=== PATIENT | male | born 1985 | race Caucasian/White ===

== ENCOUNTER 2017-05-10 00:44 | Emergency (ER) | payer MEDICAID ==
[2017-05-10 02:25] LABS: BASOPHILS 0.4 % (0-2); EOSINOPHILS 3.8 % (0-7); HEMATOCRIT 38.4 % (42.0-54.0); HEMOGLOBIN 12.8 g/dL (13.5-17.5); IMMATURE GRANULOCYTES 0.3 % (0-5); LYMPHOCYTES 31.1 % (15-50); MCHC 33.3 g/dL (31.0-37.0); MCV 90.1 fL (80.0-100.0); MEAN PLATELET VOLUME 9.7 fL (7.4-10.4); MONOCYTES 7.9 % (2-11); NEUTROPHILS 56.5 % (40-80); PLATELET COUNT 250 10x3/uL (130-400); RBC 4.26 10x6/uL (4.20-6.10); RDW 13.5 % (11.5-14.5); WBC 9.3 10x3/uL (4.8-10.8)
[2017-05-10 02:38] LABS: ALBUMIN 3.4 g/dL (3.4-5.0); ALKALINE PHOSPHATASE 62 U/L (46-116); ALT (SGPT) 46 U/L (10-68); BILIRUBIN - TOTAL 0.35 mg/dL (0.2-1.3); CALC OSMOLALITY 276 mosm/kg (275-300); CALCIUM 8.4 mg/dL (8.5-10.1); CARBON DIOXIDE 28.1 mmol/L (21.0-32.0); CHLORIDE - SERUM 105 mmol/L (98-107); CREATININE - SERUM 0.6 mg/dL (0.6-1.3); GLUCOSE 101 mg/dL (74-106); POTASSIUM - SERUM 3.5 mmol/L (3.5-5.1); PROTEIN - SERUM 6.6 g/dL (6.4-8.2); SODIUM 138 mmol/L (136-145); UREA NITROGEN 14 mg/dL (7-18); eGFR NON AFRICAN AMERICAN > 90 mL/min (90-120)
[2017-05-10 02:47] LABS: APPEARANCE CLEAR (CLEAR); COLOR YELLOW (YELLOW); SPECIFIC GRAVITY 1.005 (1.005-1.020)
[2017-05-10 02:48] LABS: BILIRUBIN NEGATIVE (NEGATIVE); GLUCOSE NEGATIVE (NEGATIVE); KETONE NEGATIVE (NEGATIVE); NITRITE NEGATIVE (NEGATIVE); PROTEIN NEGATIVE (NEGATIVE); UROBILINOGEN NORMAL (NORMAL)
[2017-05-10 03:03] LABS: UDS - AMPHET POSITIVE QUAL (NEGATIVE); UDS - BARB NEGATIVE QUAL (NEGATIVE); UDS - BENZO NEGATIVE QUAL (NEGATIVE); UDS - COCAINE NEGATIVE QUAL (NEGATIVE); UDS - OPIATE NEGATIVE QUAL (NEGATIVE); UDS - PCP NEGATIVE QUAL (NEGATIVE); UDS - THC NEGATIVE QUAL (NEGATIVE)
== END 2017-05-10 08:18 | disposition home or self-care (01) ==
LOC: D.ER 00:44
PROVIDERS: Emergency Medicine
DX: T42.4X2A Poisoning by benzodiazepines, intentional self-harm, initial encounter (principal); Y92.029 Unspecified place in mobile home as the place of occurrence of the external cause; F19.10 Other psychoactive substance abuse, uncomplicated

== ENCOUNTER 2017-05-13 14:35 | Emergency (ER) | payer MEDICAID ==
[2017-05-13 15:09] LABS: BASOPHILS 0.2 % (0-2); EOSINOPHILS 0.2 % (0-7); HEMATOCRIT 32.7 % (42.0-54.0); IMMATURE GRANULOCYTES 0.3 % (0-5); LYMPHOCYTES 14.1 % (15-50); MCH 29.7 pg (26.0-34.0); MCHC 33.6 g/dL (31.0-37.0); MCV 88.4 fL (80.0-100.0); MEAN PLATELET VOLUME 9.6 fL (7.4-10.4); MONOCYTES 11.3 % (2-11); NEUTROPHILS 73.9 % (40-80); PLATELET COUNT 267 10x3/uL (130-400); RDW 13.5 % (11.5-14.5); WBC 13.3 10x3/uL (4.8-10.8)
[2017-05-13 15:30] LABS: ACETAMINOPHEN 2.4 ug/mL (10.0-30.0); ALBUMIN 3.2 g/dL (3.4-5.0); ALKALINE PHOSPHATASE 60 U/L (46-116); ALT (SGPT) 65 U/L (10-68); BILIRUBIN - TOTAL 0.86 mg/dL (0.2-1.3); CALC OSMOLALITY 276 mosm/kg (275-300); CALCIUM 7.6 mg/dL (8.5-10.1); CARBON DIOXIDE 19.1 mmol/L (21.0-32.0); CHLORIDE - SERUM 103 mmol/L (98-107); CREATININE - SERUM 0.9 mg/dL (0.6-1.3); GLUCOSE 100 mg/dL (74-106); POTASSIUM - SERUM 3.4 mmol/L (3.5-5.1); SODIUM 135 mmol/L (136-145); UREA NITROGEN 31 mg/dL (7-18); eGFR NON AFRICAN AMERICAN > 90 mL/min (90-120)
[2017-05-13 15:35] LABS: LITHIUM 0.07 mmol/L (0.60-1.20)
[2017-05-13 16:43] LABS: APPEARANCE CLEAR (CLEAR); BILIRUBIN NEGATIVE (NEGATIVE); COLOR YELLOW (YELLOW); GLUCOSE NEGATIVE (NEGATIVE); KETONE MODERATE mg/dL (NEGATIVE); NITRITE NEGATIVE (NEGATIVE); PROTEIN NEGATIVE (NEGATIVE); UROBILINOGEN NORMAL (NORMAL)
[2017-05-13 16:52] LABS: UDS - AMPHET POSITIVE QUAL (NEGATIVE); UDS - BARB NEGATIVE QUAL (NEGATIVE); UDS - BENZO NEGATIVE QUAL (NEGATIVE); UDS - COCAINE NEGATIVE QUAL (NEGATIVE); UDS - OPIATE NEGATIVE QUAL (NEGATIVE); UDS - PCP NEGATIVE QUAL (NEGATIVE); UDS - THC NEGATIVE QUAL (NEGATIVE)
== END 2017-05-14 10:15 | disposition home or self-care (01) ==
LOC: D.ER 14:35
PROVIDERS: Emergency Medicine
DX: F15.10 Other stimulant abuse, uncomplicated (principal); F17.200 Nicotine dependence, unspecified, uncomplicated

== ENCOUNTER 2017-05-21 10:03 | Emergency (ER) | payer MEDICAID | END 2017-05-21 12:38 | disposition home or self-care (01) | LOC: D.ER 10:03 | DX: L02.415 Cutaneous abscess of right lower limb (principal); F17.200 Nicotine dependence, unspecified, uncomplicated ==

== ENCOUNTER 2017-09-25 19:32 | Emergency (ER) | payer MEDICAID ==
[2017-11-22 13:21] VITALS: BMI 19.5
== END 2017-09-25 21:49 | disposition home or self-care (01) ==
LOC: D.ER 19:32
DX: L02.415 Cutaneous abscess of right lower limb (principal)

== ENCOUNTER 2017-11-10 15:02 | Emergency (ER) | payer MEDICAID | END 2017-11-10 21:43 | disposition home or self-care (01) | LOC: D.ER 15:02 | DX: L02.31 Cutaneous abscess of buttock (principal); F17.200 Nicotine dependence, unspecified, uncomplicated ==

== ENCOUNTER 2017-11-20 19:49 | Emergency (ER) | payer MEDICAID ==
[~2017-11-20] VITALS: Ht 180.3 cm; Wt 68.2 kg
[2017-11-20 20:03] VITALS: Ht 180.3 cm; Wt 68.2 kg
[2017-11-20] MEDS ORDERED: CLEOCIN HCL300 MG PO (20:59)
[2017-11-20] MEDS ORDERED: NORCO 7.5/325 T1 TA1 PO (20:59)
[2017-11-20 22:33] VITALS: BP 123/91
[2017-11-21] MEDS ORDERED: KEFLEX500 MG PO (10:29)
[2017-11-21] MEDS ORDERED: ZOFRAN8 MG PO (10:29)
[2017-11-21] MEDS ORDERED: FLORASTOR250 MG PO (10:29)
[2017-11-21] MEDS ORDERED: LITHIUM CARBON300 MG PO (16:04)
[2017-11-21] MEDS ORDERED: SEROQUEL200 MG PO (16:05)
[2017-11-21] MEDS ORDERED: CELEXA20 MG PO (16:05)
[2017-11-29 06:16] VITALS: Ht 180.3 cm; Wt 68.2 kg
== END 2017-11-20 22:35 | disposition home or self-care (01) ==
LOC: D.ER 19:49
DX: L73.2 Hidradenitis suppurativa (principal); F17.200 Nicotine dependence, unspecified, uncomplicated

== ENCOUNTER 2017-11-21 08:56 | Observation (INO) | payer MEDICAID ==
[~2017-11-21] VITALS: Ht 180.3 cm; Wt 63.5 kg
[~2017-11-21 08:56] MED LIST: CLEOCIN HCL300 MG PO; NORCO 7.5/325 T1 TA1 PO
[2017-11-21 10:02] LABS: BASOPHILS 0.1 % (0-2); EOSINOPHILS 0.9 % (0-7); HEMATOCRIT 47.7 % (42.0-54.0); HEMOGLOBIN 15.8 g/dL (13.5-17.5); IMMATURE GRANULOCYTES 0.2 % (0-5); LYMPHOCYTES 5.6 % (15-50); MCH 30.2 pg (26.0-34.0); MCHC 33.1 g/dL (31.0-37.0); MONOCYTES 4.4 % (2-11); NEUTROPHILS 88.8 % (40-80); PLATELET COUNT 312 10x3/uL (130-400); RBC 5.24 10x6/uL (4.20-6.10); WBC 17.4 10x3/uL (4.8-10.8)
[2017-11-21 10:08] LABS: ALBUMIN 3.6 g/dL (3.4-5.0); ALKALINE PHOSPHATASE 77 U/L (46-116); ALT (SGPT) 56 U/L (10-68); AMYLASE - SERUM 64 U/L (25-115); BILIRUBIN - TOTAL 0.35 mg/dL (0.2-1.3); CALC OSMOLALITY 279 mosm/kg (275-300); CARBON DIOXIDE 31.3 mmol/L (21.0-32.0); CHLORIDE - SERUM 102 mmol/L (98-107); CREATININE - SERUM 0.9 mg/dL (0.6-1.3); GLUCOSE 91 mg/dL (74-106); LIPASE 85 U/L (73-393); POTASSIUM - SERUM 4.3 mmol/L (3.5-5.1); PROTEIN - SERUM 7.7 g/dL (6.4-8.2); SODIUM 138 mmol/L (136-145); UREA NITROGEN 25 mg/dL (7-18); eGFR NON AFRICAN AMERICAN > 90 mL/min (90-120)
[2017-11-21] MEDS ORDERED: KEFLEX500 MG PO (10:29)
[2017-11-21] MEDS ORDERED: ZOFRAN8 MG PO (10:29)
[2017-11-21] MEDS ORDERED: FLORASTOR250 MG PO (10:29)
[2017-11-21 10:33] LABS: APPEARANCE CLEAR (CLEAR); BILIRUBIN NEGATIVE (NEGATIVE); COLOR YELLOW (YELLOW); GLUCOSE NEGATIVE (NEGATIVE); KETONE NEGATIVE (NEGATIVE); NITRITE NEGATIVE (NEGATIVE); PROTEIN NEGATIVE (NEGATIVE); SPECIFIC GRAVITY 1.015 (1.005-1.020); UROBILINOGEN NORMAL (NORMAL)
[2017-11-21] MEDS ORDERED: LITHIUM CARBON300 MG PO (16:04)
[2017-11-21] MEDS ORDERED: SEROQUEL200 MG PO (16:05)
[2017-11-21] MEDS ORDERED: CELEXA20 MG PO (16:05)
[2017-11-21 16:06] VITALS: BP 125/72; BMI 19.5
[2017-11-21 20:00] VITALS: BP 119/74
[2017-11-22] VITALS: BP 121/60
[2017-11-22 04:00] VITALS: BP 122/60
[2017-11-22 06:06] LABS: BASOPHILS 0.1 % (0-2); EOSINOPHILS 3.4 % (0-7); HEMATOCRIT 40.9 % (42.0-54.0); HEMOGLOBIN 13.2 g/dL (13.5-17.5); IMMATURE GRANULOCYTES 0.3 % (0-5); LYMPHOCYTES 21.7 % (15-50); MCH 29.5 pg (26.0-34.0); MCHC 32.3 g/dL (31.0-37.0); MCV 91.3 fL (80.0-100.0); MONOCYTES 8.6 % (2-11); NEUTROPHILS 65.9 % (40-80); RBC 4.48 10x6/uL (4.20-6.10); RDW 14.2 % (11.5-14.5)
[2017-11-22 06:16] LABS: PLATELET COUNT 245 10x3/uL (130-400); WBC 6.7 10x3/uL (4.8-10.8)
[2017-11-22 06:29] LABS: ALKALINE PHOSPHATASE 54 U/L (46-116); BILIRUBIN - TOTAL 0.28 mg/dL (0.2-1.3); CALCIUM 8.2 mg/dL (8.5-10.1); CHLORIDE - SERUM 108 mmol/L (98-107); CREATININE - SERUM 0.9 mg/dL (0.6-1.3); GLUCOSE 109 mg/dL (74-106); POTASSIUM - SERUM 4.1 mmol/L (3.5-5.1); SODIUM 141 mmol/L (136-145); eGFR NON AFRICAN AMERICAN > 90 mL/min (90-120)
[2017-11-22 06:30] LABS: ALBUMIN 2.6 g/dL (3.4-5.0); ALT (SGPT) 38 U/L (10-68); CALC OSMOLALITY 280 mosm/kg (275-300); PROTEIN - SERUM 5.3 g/dL (6.4-8.2); UREA NITROGEN 11 mg/dL (7-18)
[2017-11-22 09:25] VITALS: BMI 19.5
[2017-11-22 10:15] VITALS: BP 119/65
[2017-11-22 12:17] VITALS: BP 117/69
[2017-11-22 13:21] VITALS: Ht 180.3 cm; Wt 63.5 kg
[2017-11-22] MEDS ORDERED: DOXYCYCLINE HY100 M2 PO (13:21)
== END 2017-11-22 16:28 | disposition home or self-care (01) ==
LOC: D.ER 08:56 → D.EDHOLD 11:09 → D.MS 11:17 → OBSVTIME 18:01 → D.MS 11-22 16:28
PROVIDERS: Family Medicine
DX: L73.2 Hidradenitis suppurativa (principal); F31.9 Bipolar disorder, unspecified; L02.31 Cutaneous abscess of buttock; Z59.0 Homelessness; F17.210 Nicotine dependence, cigarettes, uncomplicated

== ENCOUNTER 2017-11-28 16:29 | Observation (INO) | payer MEDICAID ==
[~2017-11-28] VITALS: Ht 180.3 cm; Wt 68.2 kg
[~2017-11-28 16:29] MED LIST changes: +CELEXA20 MG PO; +DOXYCYCLINE HY100 M2 PO; +FLORASTOR250 MG PO; +KEFLEX500 MG PO; +LITHIUM CARBON300 MG PO; +SEROQUEL200 MG PO; +ZOFRAN8 MG PO
[2017-11-28 17:28] LABS: BASOPHILS 0.4 % (0-2); EOSINOPHILS 2.6 % (0-7); HEMATOCRIT 41.1 % (42.0-54.0); HEMOGLOBIN 13.9 g/dL (13.5-17.5); IMMATURE GRANULOCYTES 0.2 % (0-5); LYMPHOCYTES 21.8 % (15-50); MCHC 33.8 g/dL (31.0-37.0); MCV 88.8 fL (80.0-100.0); MEAN PLATELET VOLUME 9.8 fL (7.4-10.4); MONOCYTES 9.8 % (2-11); NEUTROPHILS 65.2 % (40-80); PLATELET COUNT 307 10x3/uL (130-400); RBC 4.63 10x6/uL (4.20-6.10); RDW 14.1 % (11.5-14.5); WBC 8.2 10x3/uL (4.8-10.8)
[2017-11-28 17:44] LABS: ALBUMIN 3.2 g/dL (3.4-5.0); ALKALINE PHOSPHATASE 68 U/L (46-116); ALT (SGPT) 31 U/L (10-68); BILIRUBIN - TOTAL 0.57 mg/dL (0.2-1.3); CALC OSMOLALITY 282 mosm/kg (275-300); CALCIUM 8.7 mg/dL (8.5-10.1); CARBON DIOXIDE 25.6 mmol/L (21.0-32.0); CHLORIDE - SERUM 104 mmol/L (98-107); CREATININE - SERUM 0.9 mg/dL (0.6-1.3); GLUCOSE 143 mg/dL (74-106); PROTEIN - SERUM 6.6 g/dL (6.4-8.2); SODIUM 139 mmol/L (136-145); UREA NITROGEN 22 mg/dL (7-18); eGFR NON AFRICAN AMERICAN > 90 mL/min (90-120)
[2017-11-28 17:46] LABS: POTASSIUM - SERUM 3.5 mmol/L (3.5-5.1)
[2017-11-28 18:43] LABS: UDS - AMPHET POSITIVE QUAL (NEGATIVE); UDS - BARB NEGATIVE QUAL (NEGATIVE); UDS - BENZO NEGATIVE QUAL (NEGATIVE); UDS - COCAINE NEGATIVE QUAL (NEGATIVE); UDS - OPIATE NEGATIVE QUAL (NEGATIVE); UDS - PCP NEGATIVE QUAL (NEGATIVE); UDS - THC NEGATIVE QUAL (NEGATIVE)
[2017-11-28 19:30] VITALS: BP 94/55
[2017-11-28 20:30] VITALS: BP 94/52
[2017-11-28 21:30] VITALS: BP 111/57
[2017-11-28 22:30] VITALS: BP 105/48
[2017-11-29] VITALS (7 sets, daily range): BP systolic 102–138; BP diastolic 55–71; Ht 180.3 cm; Wt 68.2 kg
== END 2017-11-29 18:20 | disposition home or self-care (01) ==
LOC: D.ER 16:29 → D.EDHOLD 11-29 02:20 → OBSVTIME 11-29 02:20 → D.M2 11-29 02:54
PROVIDERS: Family Medicine
DX: T43.591A Poisoning by other antipsychotics and neuroleptics, accidental (unintentional), initial encounter (principal); F32.9 Major depressive disorder, single episode, unspecified; Z72.0 Tobacco use; F15.10 Other stimulant abuse, uncomplicated

== ENCOUNTER 2018-06-12 03:32 | Emergency (ER) | payer MEDICAID ==
[~2018-06-12] VITALS: Ht 180.3 cm; Wt 71.4 kg
[2018-06-12 03:38] VITALS: Ht 180.3 cm; Wt 71.4 kg
[2018-06-12 04:34] LABS: BASOPHILS 0.5 % (0-2); EOSINOPHILS 0.9 % (0-7); HEMATOCRIT 40.9 % (42.0-54.0); IMMATURE GRANULOCYTES 0.3 % (0-5); LYMPHOCYTES 13.4 % (15-50); MCH 30.2 pg (26.0-34.0); MCHC 34.2 g/dL (31.0-37.0); MCV 88.3 fL (80.0-100.0); MONOCYTES 10.9 % (2-11); PLATELET COUNT 291 10x3/uL (130-400); RBC 4.63 10x6/uL (4.20-6.10); RDW 12.6 % (11.5-14.5); WBC 10.3 10x3/uL (4.8-10.8)
[2018-06-12 04:48] LABS: UDS - AMPHET POSITIVE QUAL (NEGATIVE); UDS - BARB NEGATIVE QUAL (NEGATIVE); UDS - BENZO NEGATIVE QUAL (NEGATIVE); UDS - COCAINE NEGATIVE QUAL (NEGATIVE); UDS - OPIATE NEGATIVE QUAL (NEGATIVE); UDS - PCP NEGATIVE QUAL (NEGATIVE); UDS - THC NEGATIVE QUAL (NEGATIVE)
[2018-06-12 04:52] LABS: ALBUMIN 3.7 g/dL (3.4-5.0); ALKALINE PHOSPHATASE 61 U/L (46-116); ALT (SGPT) 46 U/L (10-68); BILIRUBIN - TOTAL 0.59 mg/dL (0.2-1.3); CALC OSMOLALITY 279 mosm/kg (275-300); CALCIUM 8.8 mg/dL (8.5-10.1); CARBON DIOXIDE 26.4 mmol/L (21.0-32.0); CHLORIDE - SERUM 102 mmol/L (98-107); CREATININE - SERUM 0.9 mg/dL (0.6-1.3); GLUCOSE 113 mg/dL (74-106); POTASSIUM - SERUM 4.2 mmol/L (3.5-5.1); SODIUM 136 mmol/L (136-145); UREA NITROGEN 33 mg/dL (7-18); eGFR NON AFRICAN AMERICAN > 90 mL/min (90-120)
[2018-06-12 16:11] VITALS: BP 121/73
== END 2018-06-12 16:12 | disposition home or self-care (01) ==
LOC: D.ER 03:32
PROVIDERS: Emergency Medicine
DX: F15.10 Other stimulant abuse, uncomplicated (principal); R79.89 Other specified abnormal findings of blood chemistry; R00.0 Tachycardia, unspecified

== ENCOUNTER 2020-10-11 17:43 | Inpatient (IN) | payer OTHER ==
[~2020-10-11] VITALS: Ht 180.3 cm; Wt 68.0 kg
--- NOTE | 2020-10-11 18:10 | NUR ---
URINE COLLECTED AND SENT TO LAB WITH COMPOSITION MOLDER.
[2020-10-11 18:14] LABS: BASOPHILS 2.4 % (0-2); EOSINOPHILS 1.5 % (0-7); HEMATOCRIT 42.7 % (42.0-54.0); HEMOGLOBIN 14.3 g/dL (13.5-17.5); IMMATURE GRANULOCYTES 0.3 % (0-5); MCH 29.3 pg (26.0-34.0); MCHC 33.5 g/dL (31.0-37.0); MCV 87.5 fL (80.0-100.0); MEAN PLATELET VOLUME 11.2 fL (7.4-10.4); MONOCYTES 13.2 % (2-11); NEUTROPHILS 46.6 % (40-80); PLATELET COUNT 261 10x3/uL (130-400); RBC 4.88 10x6/uL (4.20-6.10); RDW 16.2 % (11.5-14.5); WBC 7.5 10x3/uL (4.8-10.8)
--- NOTE | 2020-10-11 18:24 | NUR ---
LACERATION TO LEFT FA CLEANSED WITH WOUND CLEANSER AND BETADINE AT THIS TIME.
[2020-10-11 18:25] LABS: CALC OSMOLALITY 279 mosm/kg (275-300); CALCIUM 8.2 mg/dL (8.5-10.1); CARBON DIOXIDE 28.2 mmol/L (21.0-32.0); CHLORIDE - SERUM 107 mmol/L (98-107); CREATININE - SERUM 0.7 mg/dL (0.6-1.3); GLUCOSE 80 mg/dL (74-106); POTASSIUM - SERUM 3.6 mmol/L (3.5-5.1); SODIUM 141 mmol/L (136-145); UREA NITROGEN 13 mg/dL (7-18); eGFR NON AFRICAN AMERICAN > 90 mL/min (90-120)
[2020-10-11 18:29] LABS: UDS - AMPHET POSITIVE QUAL (NEGATIVE); UDS - BARB NEGATIVE QUAL (NEGATIVE); UDS - BENZO NEGATIVE QUAL (NEGATIVE); UDS - COCAINE NEGATIVE QUAL (NEGATIVE); UDS - OPIATE NEGATIVE QUAL (NEGATIVE); UDS - PCP NEGATIVE QUAL (NEGATIVE); UDS - THC NEGATIVE QUAL (NEGATIVE)
[2020-10-11 18:33] LABS: BILIRUBIN 2+ (NEGATIVE); KETONE NEGATIVE (NEGATIVE); NITRITE NEGATIVE (NEGATIVE); UROBILINOGEN NORMAL mg/dL (< 2)
[2020-10-11 18:37] LABS: ALBUMIN 3.1 g/dL (3.4-5.0); ALKALINE PHOSPHATASE 196 U/L (30-120); BILIRUBIN - TOTAL 8.97 mg/dL (0.2-1.3); MAGNESIUM - SERUM 2.1 mg/dL (1.8-2.4); PROTEIN - SERUM 6.6 g/dL (6.4-8.2)
[2020-10-11 18:46] LABS: ALT (SGPT) 1908 U/L (10-68)
--- NOTE | 2020-10-11 19:00 | NUR ---
PT SITTING UP IN BED CALM AND COOPERATIVE AT THIS TIME. PT STATES THAT HE HAS BEEN DEPRESSED AND KNOWS HE NEEDS HELP. PT C/O SI. PT INFORMED THAT ASSEMBLER PIANO WILL COME TO ASSESS HIM. AT BEDSIDE.
--- NOTE | 2020-10-11 20:00 | NUR ---
DR. CORRAL NOTIFIED AND SITTER ORDERED. SITTER AT BEDSIDE. NOTIFIED CHARGE NURSE AND ATTENDING IN REGARDS TO ASSESSMENT FINDINGS. RESOURCES GIVEN TO PT AND SAFETY PLAN INITIATED.
--- NOTE | 2020-10-11 22:00 | NUR ---
PT GIVEN SANDWICH BOX WITH JELLO AND WATER TO DRINK.SITTER AT BEDSIDE.
--- NOTE | 2020-10-11 23:24 | NUR ---
PT WOUND CLEANED TO L FOREARM WITH WOUND POT ROOM TAPPER. BACITRACIN APPLIED AND DRESSING APPLIED. PT SITTING UP IN BED EATING SANDWICH
--- NOTE | 2020-10-12 01:10 | NUR ---
PT RESTING EYES CLOSED RESP EVEN AND UNLABORED SITTER AT BEDSIDE.
[2020-10-12 03:39] VITALS: BP 105/56
[2020-10-12 06:00] VITALS: BP 102/48
[2020-10-12 16:00] LABS: APTT 30.3 SECONDS (22.8-39.4); INR 1.31 (0.85-1.17); PROTIME 15.1 SECONDS (11.6-15.0)
[2020-10-12 16:16] LABS: BILIRUBIN - TOTAL 7.15 mg/dL (0.2-1.3)
--- NOTE | 2020-10-12 19:30 | NUR ---
UPDATED PT ON PLAN OF CARE, REMINDED HIM OF BEING NPO AT MIDNIGHT. SCD NOT PLACED D/T LIGATURE RISK AND PT REQUENTLY MOVING AROUND BED AND AMBULATING TO AND FROM RESTROOM. PT GIVEN ICE WATER, SANDWICH AT THIS TIME. PT AAO X4, VOICES NEEDS. RESPIRATIONS APPEAR EVEN AND NON LABORED. NO SIGNS ACUTE DISTRESS AT THIS TIME. PT SKIN IS JAUNDICE. THERE IS A DRESSING ON LEFT FOREARM WHERE PT PREVIOUSLY CUT SELF IN AN ATTEMPT TO COMMIT SUICIDE.
--- NOTE | 2020-10-12 21:51 | NUR ---
WOUND ON L FOREARM CLEANED WITH WOUND CLEANSER. BACITRACIN APPLIED AND DRESSING APPLIED. PT THEN AMBULATED TO AND FROM RESTROOM WITH STEADY GAIT.
--- NOTE | 2020-10-12 23:20 | NUR ---
PT GIVEN ICE WATER, PEANUT BUTTER AND CRACKERS. DENIES FURTHER NEEDS. SITTER REMAINS WITHIN LINE OF SIGHT.
[2020-10-13] VITALS: BP 108/58
--- NOTE | 2020-10-13 01:36 | NUR ---
PT REMAINS IN BED, FREQUENTLY MOVES EXTREMETIES. SITTER WITHIN LINE OF SIGHT.
--- NOTE | 2020-10-13 03:55 | NUR ---
PT RESTING ON RIGHT SIDE. NAD NOTED. SITTER WITHIN LINE OF SIGHT.
[2020-10-13 04:00] VITALS: BP 110/65
--- NOTE | 2020-10-13 06:23 | NUR ---
I.S. AT BEDSIDE. PT EDUCATED ON USE. DEMONSTRATES TO NURSE HOW TO USE.
--- NOTE | 2020-10-13 06:25 | NUR ---
PT WEIGHS 144.6 PER SCALE. ABLE TO AMBULATE AROUND ROOM INDEPENDENTLY WITH STEADY GAIT. DENIES CURRENT NEEDS. HAS NOTIFIED NURSE THAT HE HAS HAD BM'S THROUGHOUT NIGHT THAT WERE YELLOW AND WHITE IN NATURE, HAS HAD LOOSE STOOLS.
[2020-10-13 07:21] LABS: HEMATOCRIT 39.7 % (42.0-54.0); HEMOGLOBIN 13.4 g/dL (13.5-17.5); LYMPHOCYTE ABS# 1.89 10x3/uL (1.32-3.57); MCH 29.3 pg (26.0-34.0); MCHC 33.8 g/dL (31.0-37.0); MCV 86.9 fL (80.0-100.0); MEAN PLATELET VOLUME 11.4 fL (7.4-10.4); NEUTROPHIL ABS# 3.01 10x3/uL (1.78-5.38); PLATELET COUNT 236 10x3/uL (130-400); RBC 4.57 10x6/uL (4.20-6.10); RDW 16.5 % (11.5-14.5)
[2020-10-13 07:35] LABS: ALBUMIN 2.5 g/dL (3.4-5.0); ALKALINE PHOSPHATASE 221 U/L (30-120); BILIRUBIN - TOTAL 7.33 mg/dL (0.2-1.3); CALC OSMOLALITY 276 mosm/kg (275-300); CALCIUM 8.1 mg/dL (8.5-10.1); CARBON DIOXIDE 29.3 mmol/L (21.0-32.0); CHLORIDE - SERUM 106 mmol/L (98-107); CREATININE - SERUM 0.7 mg/dL (0.6-1.3); GLUCOSE 96 mg/dL (74-106); POTASSIUM - SERUM 4.1 mmol/L (3.5-5.1); PROTEIN - SERUM 5.8 g/dL (6.4-8.2); SODIUM 139 mmol/L (136-145); UREA NITROGEN 10 mg/dL (7-18); eGFR NON AFRICAN AMERICAN > 90 mL/min (90-120)
[2020-10-13 07:47] LABS: ALT (SGPT) 1067 U/L (10-68)
[2020-10-13 07:52] LABS: EOSINOPHILS 1 % (0-7); LYMPHOCYTES 28 % (15-50); NEUTROPHILS 68 % (40-80); PLATELET ESTIMATE NORMAL; TARGET CELLS OCC
[2020-10-13 09:12] LABS: HEPATITIS C ANTIBODY 0.2 (0.0-0.9)
[2020-10-13 09:27] VITALS: Ht 180.3 cm; Wt 68.0 kg
--- NOTE | 2020-10-13 16:26 | MORECARE ---
CASE MANAGEMENT DISCHARGE SUMMARY PATIENT: MONICA MUÑOZ UNIT: [id number] ADM DATE: 10/11/20 AGE: 34 : 85 SEX: M ROOM/BED: D.E21 AUTHOR: SARAH,DOC PHYSICIAN: REFERRING PHYSICIAN: PANCHITO HADDAD MD DATE OF SERVICE: 10/13/20 Case Management Discharge Planning Summary COMMENTS ENTERED DATE: 10/13/20 16:18 CT COMMENT TYPE: Discharge Planning REVIEWER: Katie Blue CM received consult for Inpatient Psych placement. CM spoke with patient's nurse, Magui, about consult. Magui informed CM that patient want's to be sent to [facility]. Patient has not been deemed medically stable at this time but may be ready for discharge to Inpatient [facility] this weekend. TAYLOR called and spoke with Ye at [facility] about referral. Informed Ye that CM anticipating DC this weekend. CM faxed records as requested to [phone]. CM to call facility back )when patient is stable for DC. DCP REVIEW SUMMARY ANTICIPATED D/C DATE: EXPECTED LOS : CASE STATUS: DCP Initiated INITIAL REVIEW: 10/11/2020 INITIAL REVIEWER: Katie Blue FINAL DISCHARGE DISPOSITION: : FINAL REVIEWER: FINAL REVIEW DATE: DCP Focus Questions & Answers QUESTION: ANSWER : PATIENT: MONICA MUÑOZ ENCOUNTER: [id number] MEDICAL RECORD#: [id number] ADMISSION DATE: 10/11/2020 DISCHARGE DATE: ATTENDING MD: PANCHITO ARANA : AGE: 34 MARITAL STATUS: S DC PLAN ID: [id number] FACILITY: [facility] PRINTED ON: 10/13/20 16:26 CT All edits/amendments must be made on the electronic document DICTATION DATE: 10/13/201625 PIGMENT MAKING SUPERVISOR: MATHIEU 10/13/201625 RPT#: [id number] DC DATE: STATUS: ADM IN [facility] [address] [place] [address] END OF REPORT
[2020-10-14 06:19] LABS: BASOPHILS 0.8 % (0-2); IMMATURE GRANULOCYTES 0.5 % (0-5); LYMPHOCYTE ABS# 1.96 10x3/uL (1.32-3.57); LYMPHOCYTES 30.7 % (15-50); MCH 28.8 pg (26.0-34.0); MCHC 33.3 g/dL (31.0-37.0); MCV 86.5 fL (80.0-100.0); MEAN PLATELET VOLUME 11.6 fL (7.4-10.4); MONOCYTES 14.6 % (2-11); NEUTROPHIL ABS# 3.28 10x3/uL (1.78-5.38); NEUTROPHILS 51.4 % (40-80); PLATELET COUNT 255 10x3/uL (130-400); RBC 4.51 10x6/uL (4.20-6.10); RDW 16.6 % (11.5-14.5); WBC 6.4 10x3/uL (4.8-10.8)
[2020-10-14 06:42] LABS: ALBUMIN 2.4 g/dL (3.4-5.0); ALKALINE PHOSPHATASE 279 U/L (30-120); BILIRUBIN - TOTAL 5.57 mg/dL (0.2-1.3); CALCIUM 8.1 mg/dL (8.5-10.1); CHLORIDE - SERUM 105 mmol/L (98-107); CREATININE - SERUM 0.7 mg/dL (0.6-1.3); GLUCOSE 106 mg/dL (74-106); PROTEIN - SERUM 5.9 g/dL (6.4-8.2); SODIUM 140 mmol/L (136-145); eGFR NON AFRICAN AMERICAN > 90 mL/min (90-120)
[2020-10-14 06:43] LABS: ALT (SGPT) 797 U/L (10-68); CALC OSMOLALITY 278 mosm/kg (275-300); UREA NITROGEN 13 mg/dL (7-18)
[2020-10-14 06:44] LABS: INR 1.2 (0.85-1.17); PROTIME 14.1 SECONDS (11.6-15.0)
[2020-10-14 07:05] VITALS: BP 146/78
--- NOTE | 2020-10-14 09:10 | NUR ---
PT SWAB FOR COVID, SENT TO LAB. DR. HADDAD HERE TO SEE PT. STATES WE CAN START TRYING TO PLACE PT. IN PSYCH FACILITY.
[2020-10-14 09:17] LABS: BILIRUBIN 3+ (NEGATIVE); KETONE NEGATIVE (NEGATIVE); NITRITE NEGATIVE (NEGATIVE)
[2020-10-14 09:56] LABS: SARS-CoV-2 ANTIGEN NEGATIVE- SARS-COV-2 (NEGATIVE)
[2020-10-14 10:00] VITALS: BP 149/73
[2020-10-14 18:07] VITALS: BP 138/72
--- NOTE | 2020-10-14 19:52 | NUR ---
[facility] CALLED FOR TRANSPORT
[2020-10-14 20:00] VITALS: BP 132/85
--- NOTE | 2020-10-14 21:03 | MORECARE ---
CASE MANAGEMENT DISCHARGE SUMMARY PATIENT: MONICA MUÑOZ UNIT: [id number] ADM DATE: 10/11/20 AGE: 34 : 85 SEX: M ROOM/BED: D.E21 AUTHOR: SARAH,DOC PHYSICIAN: REFERRING PHYSICIAN: PANCHITO HADDAD MD DATE OF SERVICE: 10/14/20 Case Management Discharge Planning Summary COMMENTS ENTERED DATE: 10/13/20 16:18 CT COMMENT TYPE: Discharge Planning REVIEWER: Katie Blue CM received consult for Inpatient Psych placement. CM spoke with patient's nurse, Magui, about consult. Magui informed CM that patient want's to be sent to [facility]. Patient has not been deemed medically stable at this time but may be ready for discharge to Inpatient [facility] this weekend. TAYLOR called and spoke with Ye at [facility] about referral. Informed Ye that CM anticipating DC this weekend. CM faxed records as requested to [phone]. CM to call facility back )when patient is stable for DC. DCP REVIEW SUMMARY ANTICIPATED D/C DATE: EXPECTED LOS : CASE STATUS: DCP Initiated INITIAL REVIEW: 10/11/2020 INITIAL REVIEWER: Katie Bule FINAL DISCHARGE DISPOSITION: : FINAL REVIEWER: FINAL REVIEW DATE: DCP Focus Questions & Answers QUESTION: ANSWER : PATIENT: MONICA MUÑOZ ENCOUNTER: [id number] MEDICAL RECORD#: [id number] ADMISSION DATE: 10/11/2020 DISCHARGE DATE: 10/14/2020 ATTENDING MD: PANCHITO ARANA : AGE: 34 MARITAL STATUS: S DC PLAN ID: [id number] FACILITY: [facility] PRINTED ON: 10/14/20 21:03 CT All edits/amendments must be made on the electronic document DICTATION DATE: 10/14/202102 [place] OPERATOR: MATHIEU 10/14/202102 RPT#: [id number] DC DATE:10/14/20 STATUS: DIS IN [facility] [address] [place] [address] END OF REPORT
--- NOTE | 2020-10-16 15:16 | CN ---
PATIENT NAME:MONICA MUÑOZ MEDICAL RECORD: [id number] : 85 LOCATION:ANN.E21- ADMIT DATE: 10/11/20 ACCOUNT: [id number] CONSULTING PHYSICIAN: VANIA CORRAL MD REFERRING PHYSICIAN: PANCHITO HADDAD MD DATE OF CONSULTATION: 10/12/2020 IDENTIFYING DATA: The patient is 34 years old and he is admitted to the hospital secondary to hepatic dysfunction. CHIEF COMPLAINT: Suicidal thoughts. HISTORY OF PRESENT ILLNESS: The patient presented to the Emergency Room after having cut his wrists and was reporting suicidal thoughts. He was found to have elevated liver enzymes and he does have a known history of hepatitis C. He is endorsing numerous neurovegetative depressive symptoms and tells me he has a history of bipolar disorder with previous stabilization on lithium. He furthermore reports that he does indeed have a long history of IV drug addiction, but that he had been in a treatment program and has had about 90 days of sobriety prior to the day of admission, at which time he did use methamphetamine. He believes that his primary mental health issue is now depression and he is wanting inpatient mental health treatment. He has been to [facility] twice in the past and is willing to go back there. ASSESSMENT: 1. Bipolar disorder, depressed. 2. Methamphetamine abuse. PLAN: The patient is obviously going to be hospitalized given his current medical conditions and he should be with a sitter during this hospitalization. I am going to take a conservative approach to treating him pharmacologically today because he has such abnormal labs. I will prescribe the lithium and recommend that he stay with a sitter and that once medically stabilized, he needs to be transferred to inpatient psychiatric care. TRANSINT:[id number] Voice Confirmation ID: [id number] DOCUMENT ID: [id number] VANIA CORRAL MD at 1516 CC: [id number] DICTATION DATE: 10/12/20 1611 GRAVEDIGGER: 10/12/20 1759 DIS IN 10/14/20 [place] [id number] [place] [id number]
== END 2020-10-14 20:59 | DRG 442 ==
LOC: D.ER 17:43 → D.EDHOLD 20:07
PROVIDERS: Emergency Medicine; Family Medicine; Internal Medicine Gastroenterology; ADMIT Family Medicine; ATTEND Family Medicine
DX: B17.10 Acute hepatitis C without hepatic coma (principal); R17 Unspecified jaundice; F31.30 Bipolar disorder, current episode depressed, mild or moderate severity, unspecified; S61.512A Laceration without foreign body of left wrist, initial encounter; X78.9XXA Intentional self-harm by unspecified sharp object, initial encounter; F15.10 Other stimulant abuse, uncomplicated; J44.9 Chronic obstructive pulmonary disease, unspecified

== ENCOUNTER 2020-11-01 13:23 | Emergency (ER) | payer OTHER ==
[~2020-11-01] VITALS: Ht 180.3 cm; Wt 68.2 kg
[2020-11-01 14:13] VITALS: Ht 180.3 cm; Wt 68.2 kg
[2020-11-01 14:37] LABS: BASOPHILS 1.1 % (0-2); EOSINOPHILS 2.4 % (0-7); HEMATOCRIT 39.8 % (42.0-54.0); HEMOGLOBIN 13.4 g/dL (13.5-17.5); LYMPHOCYTES 31.2 % (15-50); MCH 29.9 pg (26.0-34.0); MCHC 33.7 g/dL (31.0-37.0); MCV 88.6 fL (80.0-100.0); MEAN PLATELET VOLUME 7.5 fL (7.4-10.4); NEUTROPHILS 53.3 % (40-80); RBC 4.49 10x6/uL (4.20-6.10); WBC 8.8 10x3/uL (4.8-10.8)
[2020-11-01 14:45] LABS: CALC OSMOLALITY 285 mosm/kg (275-300); CALCIUM 8.7 mg/dL (8.5-10.1); CARBON DIOXIDE 26.3 mmol/L (21.0-32.0); CHLORIDE - SERUM 105 mmol/L (98-107); CREATININE - SERUM 0.9 mg/dL (0.6-1.3); GLUCOSE 99 mg/dL (74-106); POTASSIUM - SERUM 4.1 mmol/L (3.5-5.1); SODIUM 141 mmol/L (136-145); UREA NITROGEN 27 mg/dL (7-18); eGFR NON AFRICAN AMERICAN > 90 mL/min (90-120)
[2020-11-01 14:45] LABS: BILIRUBIN NEGATIVE (NEGATIVE); KETONE NEGATIVE (NEGATIVE); NITRITE NEGATIVE (NEGATIVE); UROBILINOGEN NORMAL mg/dL (< 2)
[2020-11-01 14:50] LABS: UDS - AMPHET POSITIVE QUAL (NEGATIVE); UDS - BARB POSITIVE QUAL (NEGATIVE); UDS - BENZO NEGATIVE QUAL (NEGATIVE); UDS - COCAINE NEGATIVE QUAL (NEGATIVE); UDS - OPIATE NEGATIVE QUAL (NEGATIVE); UDS - PCP NEGATIVE QUAL (NEGATIVE); UDS - THC NEGATIVE QUAL (NEGATIVE)
[2020-11-01 14:52] LABS: ALBUMIN 3.9 g/dL (3.4-5.0); ALKALINE PHOSPHATASE 103 U/L (30-120); ALT (SGPT) 107 U/L (10-68); BILIRUBIN - TOTAL 1.04 mg/dL (0.2-1.3); MAGNESIUM - SERUM 2.3 mg/dL (1.8-2.4); PROTEIN - SERUM 7.5 g/dL (6.4-8.2)
[2020-11-01 15:07] LABS: PLATELET COUNT 362 10x3/uL (130-400)
--- NOTE | 2020-11-01 15:17 | NUR ---
Suicide risk assessment complete. Patient has a HX of suicidal ideation and risk. He wants to hurt himself. Review of assessment and observation with ED charge nurse, ER physician Dr. Henley, and Koko Ramos APN for [facility]. Patient has been to rehab just recently, got off his medications, consumed street drugs, and now presents with suicidal ideations. He seeks help. He will be placed on suicidal nursing precautions with one to one observation.His risk score is moderate.
[2020-11-01 20:20] VITALS: BP 109/61
== END 2020-11-02 01:55 | disposition other institution (70) ==
LOC: D.ER 13:23
PROVIDERS: Family Medicine
DX: R45.851 Suicidal ideations (principal); F15.10 Other stimulant abuse, uncomplicated; Z91.19 Patient's noncompliance with other medical treatment and regimen; J44.9 Chronic obstructive pulmonary disease, unspecified; Z72.0 Tobacco use